=== PATIENT | male | born 1950 | race Caucasian/White ===

== ENCOUNTER → 2016-05-29 | Outpatient (CLI) | payer BC, OTHER ==
[2013-12-26 10:26] VITALS: BP 139/83
--- NOTE | 2016-05-29 10:42 | MRI ---
HISTORY: Lumbar post laminectomy syndrome Study: MRI lumbar spine without contrast Comparison: 11/22/2013 Technique: Multiplanar multi-sequence MRI of the lumbar spine was obtained. Sagittal T1, sagittal T 2, and stir weighted images, axial T1, and axial T2 images were obtained. Findings: The lumbar spine demonstrates normal alignment. No abnormal cord or marrow signal identified. The c onus of the cord terminates normally. The surrounding soft tissues are within normal limits. Verteb ral body heights are preserved. There is multilevel disc space narrowing and spondylosis throughout the lumbar spine. T12 -- L1: No significant stenosis identified. L1 -- L2: There is a right-sided disc protrusion with large amount of extruded disc material in the right lateral recess extending inferiorly with resultant encroachment upon the exiting right L2 nerv e root and descending right L3 nerve. L2 -- L3: There is mass-effect upon the descending L3 right nerve as discussed above due to extruded disc material. The L2-L3 disc shows a mild central annular bulge without significant mass effect or foraminal stenosis. L3 -- L4: There is disc space narrowing and desiccation associated with a broad-based disc bulge asy mmetric to the left. There is moderate bilateral facet degenerative changes and resultant mild left foraminal narrowing L4 -- L5: There is disc desiccation and narrowing associated with a broad based disc bulge with cent ral annular tear and moderate facet hypertrophic changes resulting in mild bilateral foraminal narro wing. L5 -- S1: There is a chronic central disc protrusion with extruded disc material inferiorly and to t he right. There are laminectomy changes seen on the right side at this level. IMPRESSION: 1. At L1-L2 there is a right-sided disc protrusion with a large amount of extruded disc material in the right lateral recess extending inferiorly with resultant encroachment of the exiting right L2 ne rve root and descending right L3 nerve. 2. Chronic central disc protrusion at L5-S1 also extruded inferiorly and to the right with right hem ilaminectomy changes present. 3. Broad-based disc bulges and facet changes at L3-L4 and L4-L5 as described with associated foramin al narrowing. Reported By:
== END ==
LOC: RAD 08:47
PROVIDERS: ATTEND Specialist
DX: M96.1 Postlaminectomy syndrome, not elsewhere classified (principal)
CPT/HCPCS: 72148

== ENCOUNTER 2016-07-06 12:22 | Day surgery (SDC) | payer OTHER, MEDICAID ==
--- NOTE | 2016-07-06 12:57 | DR.H&P ---
H&P - History & Physical for Day of: H&P Date: 07/06/16 - Chief Complaint Chief Complaint: my back and right leg hurts down to my knee. its numb sometimes - Allergies Allergies/Adverse Reactions: Allergies Allergy/AdvReac Type Severity Reaction Status Date / Time Amoxicillin Allergy Severe ANAPHALEXIS Verified 12/26/13 08:53 REACTION Ciprofloxacin [From Cipro] Allergy Severe ANAPHALEXIS Verified 12/26/13 08:53 REACTION Penicillins Allergy Severe ANAPHALEXIS Verified 12/26/13 08:53 REACTION Sulfamethoxazole Allergy Severe ANAPHALEXIS Verified 12/26/13 08:53 w/Trimethoprim REACTION [From Bactrim] - History of Present Illness History of Present Illness: long h/o back pain with radiculopathy. tfesi left L4 -5 in 2013 with good results. pain presents on the right mostly radiating to the right knee.. - Social History Does patient currently use any type of tobacco product: Yes Have you used tobacco products in the last 12 months: Yes Type of Tobacco Use: Cigarettes Packs per day or dips/chews per day: 3cig a day Does any household member use tobacco: No Alcohol Use: Occasionally Drug Use: None - Physical Exam Vital Signs: Temperature 97.9 F Pulse Rate 71 Respiratory Rate 18 Blood Pressure 152/87 O2 Sat by Pulse Oximetry 99 Musculoskeletal: Back:Thoracic, Back:Lumbar (low back pain. no stepoff-deformity ) Psychiatric: Normal Mood Description: Calm - Assessment/Plan (1) Post laminectomy syndrome Status: Acute Plan: interlaminar epidural steroid injection L3-4 right
[2016-07-06] MEDS: KENALOG INJ 40 MG ONE ×2 (13:11→13:15)
[2016-07-06] MEDS: MARCAINE 0.25% WITH EPI IJ ONE ×2 (13:11→13:15)
[2016-07-06] MEDS ORDERED: XYLOCAINE 2 % (PLAIN) ONE (13:13)
[2016-07-06 14:06] VITALS: BP 145/74
== END 2016-07-06 13:40 | disposition home or self-care (01) ==
LOC: SURG1 12:22
PROVIDERS: ATTEND Specialist
PROC: 3E0R33Z Introduction of Anti-inflammatory into Spinal Canal, Percutaneous Approach (ICD-10-PCS; principal; 2016-07-06 14:30)
PROC: 3E0R3BZ Introduction of Anesthetic Agent into Spinal Canal, Percutaneous Approach (ICD-10-PCS; principal; 2016-07-06 14:30)
PROC: B01BZZZ Fluoroscopy of Spinal Cord (ICD-10-PCS; principal; 2016-07-06 14:30)
DX: M96.1 Postlaminectomy syndrome, not elsewhere classified (principal)
CPT/HCPCS: 62323; 76000; A4222; S0020; J2001; J3301

== ENCOUNTER 2016-08-05 10:39 | Day surgery (SDC) | payer OTHER, MEDICAID ==
--- NOTE | 2016-08-05 11:06 | DR.UPDATE ---
H&P Update History and Physical Update: History and Physical reviewed and patient examined. Changes noted: NO Yes with the following:agree with Dr. Maher h&p. will attempt left tfesi L3-4. and intralaminar yolanda if unable to perform tfesi
[2016-08-05] MEDS ORDERED: KENALOG INJ 40 MG ONE (11:08)
[2016-08-05] MEDS ORDERED: XYLOCAINE 1 % (PLAIN) ONE (11:09)
[2016-08-05] MEDS ORDERED: MARCAINE 0.25% WITH EPI IJ ONE (11:09)
[2016-08-05] MEDS ORDERED: XYLOCAINE-MPF 1% ONE (11:10)
[2016-08-05 12:59] VITALS: BP 117/75
== END 2016-08-05 11:50 | disposition home or self-care (01) ==
LOC: SURG1 10:39
PROVIDERS: ATTEND Specialist
PROC: 3E0R33Z Introduction of Anti-inflammatory into Spinal Canal, Percutaneous Approach (ICD-10-PCS; principal; 2016-08-05 12:00)
PROC: 3E0R3BZ Introduction of Anesthetic Agent into Spinal Canal, Percutaneous Approach (ICD-10-PCS; principal; 2016-08-05 12:00)
DX: M96.1 Postlaminectomy syndrome, not elsewhere classified (principal)
CPT/HCPCS: 62323; 64483; 76000; A4222; S0020; J2001; J3301